=== PATIENT | male | born 2000 | race Caucasian/White ===

== ENCOUNTER 2021-09-09 01:11 | Observation (INO) | payer SELFPAY ==
[2021-09-09] MEDS ORDERED: Fentanyl 100 MCG/2 ML VIAL ONE ×2 (01:32→02:10)
[2021-09-09] MEDS ORDERED: Midazolam HCl 2 mg/2 ml Vial ONE (01:32)
[2021-09-09] MEDS ORDERED: Morphine 4 MG/ML VIAL SLOW IVP PRN ×2 (01:36→03:10)
[2021-09-09] MEDS ORDERED: HYDROcodone/Acetaminophen 5/325 mg Tablet PO PRN ×2 (01:36)
[2021-09-09] MEDS ORDERED: Ondansetron PF 4 MG/2 ML Vial IVP PRN (01:36)
[2021-09-09] MEDS ORDERED: hydrALAZINE 20 MG/ML VIAL SLOW IVP PRN ×2 (01:36)
[2021-09-09] MEDS ORDERED: Mag-Al 1200 mg/1200 mg/30 ML UDCUP PO PRN (01:36)
[2021-09-09] MEDS ORDERED: Oxybutynin 5 MG TAB PO PRN (01:36)
[2021-09-09] MEDS ORDERED: diphenhydrAMINE 50 MG/ML VIAL IVP PRN (01:36)
[2021-09-09] MEDS ORDERED: Phenazopyridine HCl 97.5 MG TABLET PO PRN (01:36)
[2021-09-09] MEDS ORDERED: Ondansetron PF 4 MG/2 ML Vial ONE (01:44)
[2021-09-09] MEDS ORDERED: Lidocaine 1% PF 5 ML VIAL ONE (01:44)
[2021-09-09] MEDS ORDERED: PROPOFOL 200 MG/20 ML VIAL ONE (01:44)
[2021-09-09] MEDS ORDERED: Succinylcholine 200 MG/10 ml SYRINGE FS ONE (01:44)
[2021-09-09] MEDS ORDERED: Dexamethasone 20 MG/5 ML VIAL ONE (01:44)
[2021-09-09] MEDS ORDERED: Levofloxacin 500 mg/D5W 100 ml Premix Bag ONE (01:47)
[2021-09-09] MEDS ORDERED: HYDROmorphone 2 MG/ML VIAL SLOW IVP PRN (02:16)
[2021-09-09] MEDS ORDERED: Promethazine HCl 25 MG/ML VIAL IM PRN (02:16)
[2021-09-09] MEDS ORDERED: Meperidine HCl/PF 25 MG/ML VIAL SLOW IVP PRN (02:16)
[2021-09-09] MEDS ORDERED: Ondansetron HCl/PF 4 MG/2 ML Vial IVP PRN (02:16)
[2021-09-09] MEDS ORDERED: Promethazine HCl 25 MG/ML VIAL IVPB PRN (02:16)
[2021-09-09 03:34] VITALS: BMI 52.4
[2021-09-09 03:37] LABS: Bacteria/HPF None Seen HPF (None Seen); Bilirubin Negative (Negative); Blood, Urine 3+ (Negative); Clarity Clear (Clear); Glucose, Urine (Dipstick) Normal (Negative); Ketone, Urine Negative (Negative); Leukocyte 25 Leu/uL (Negative); Nitrite Negative (Negative); Protein, Urine (Dipstick) Negative (Neg-Trace); RBC/HPF Greater than 50 HPF (0-3); Specific Gravity, Urine 1.015 (1.002-1.036); Squamous Epithelial None Seen HPF (0-3); Urobilinogen Normal mg/dL (Less than 2)
[2021-09-09 08:40] VITALS: TEMP 97.9
[2021-09-09] MEDS ORDERED: Famotidine/PF 20 mg/2ml Vial SLOW IVP SCH (09:00)
[2021-09-09] MEDS ORDERED: Docusate 100 MG CAP PO SCH (09:00)
[2021-09-09] MEDS ORDERED: Tamsulosin HCl 0.4 MG CAP PO SCH (10:00)
[2021-09-09] MEDS ORDERED: Ibuprofen 600 MG TAB PO SCH (10:00)
[2021-09-09] MEDS: Sodium Chloride 0.9% 1,000 ML IV SCH ×2 (10:05→10:10)
[2021-09-09 12:42] VITALS: BP 119/67
[2021-09-10] MEDS ORDERED: FLU VACC QS2021-22(6MOS UP)/PF 60 MCG/0.5 ML SYRINGE IM ONE (09:00)
[2021-09-14 18:37] LABS: CA Oxalate Dihydrate 70 % (.); CA Oxalate Monohydrate 20 % (.); Color Tan (.); Stone Weight 20 mg (.)
== END 2021-09-09 13:48 | disposition home or self-care (01) ==
LOC: ERS 01:11 → SDC/OP 01:43 → SURG B 02:00
PROVIDERS: ADMIT Urology; ATTEND Urology
PROC: 0TCD8ZZ Extirpation of Matter from Urethra, Via Natural or Artificial Opening Endoscopic (ICD-10-PCS; principal; 2021-09-09)
DX: N21.1 Calculus in urethra (principal); R33.8 Other retention of urine; I10 Essential (primary) hypertension; K76.0 Fatty (change of) liver, not elsewhere classified; E66.01 Morbid (severe) obesity due to excess calories; Z68.43 Body mass index [BMI] 50.0-59.9, adult; Z88.1 Allergy status to other antibiotic agents; Z88.5 Allergy status to narcotic agent
CPT/HCPCS: 74420; 81001; 82365; 87086; 88300; 99284; G0378; J1100; J1956; J2250; J2405; J2704; J3010; J7050